=== PATIENT | female | born 1995 | race Caucasian/White ===

== ENCOUNTER 2016-09-24 20:49 | Emergency (ER) | payer OTHER ==
--- NOTE | 2016-09-24 21:53 | ED CLINICAL REPORT ---
Clinical Report - Physicians/Mid Levels [facility] [address] [place] [address] 09/24/2016 20:51 Patient: CORI ESPINAL Time Seen: 2140 PM. Arrived- By private vehicle. Historian- patient. HISTORY OF PRESENT ILLNESS Chief Complaint: DYSURIA. This started today and still present. The symptoms are described as moderate. No vaginal pain, vaginal discharge, vaginal itching or genital lesions. She has had urgency of urination. Last normal menstrual period was 1 week ago. Sexual history - sexually active. No history of exposure to sexually transmitted disease. Similar symptoms previously: Once. Recent medical care: Not recently seen/assessed. REVIEW OF SYSTEMS No nausea, vomiting, fever, chills or anorexia. PAST HISTORY See nurses notes. No history of hypertension or diabetes mellitus. SOCIAL HISTORY Never smoker. History of drug use: marijuana. No alcohol use. ADDITIONAL NOTES The nursing notes have been reviewed. PHYSICAL EXAM Vital Signs: 09/24/2016 21:00 BP: 116/73. HR: 77. RR: 16. O2 saturation: 100%. Temp: 98.5 F. Pain level now: 5/10. Have been reviewed and appear to be correct. Appearance: Alert. Oriented X3. No acute distress. HEENT: Normal external inspection. Neck: Neck supple. Respiratory: No respiratory distress. Abdomen: Soft. Skin: Skin warm and dry. Normal skin color. Normal skin turgor. Neuro: Oriented X 3. Mood/affect normal. LABS, X-RAYS, AND EKG Laboratory Tests: Laboratory tests have been ordered, with results reviewed and considered in the medical decision making process. UA-Culture if indicated: (KATHY: 09/24/2016 20:15) ( MsgRcvd 09/24/2016 21:50) Final results Test Result Flag Units (Reference) URINE COLOR YELLOW URINE APPEARANCE CLOUDY URINE GLUCOSE NEGATIVE (NEGATIVE) URINE BILIRUBIN NEGATIVE (NEGATIVE) URINE KETONE NEGATIVE (NEGATIVE) URINE SPECIFIC GRAVITY 1.020 (1.010-1.030) URINE PH 6.0 (5.0-8.0) URINE PROTEIN TRACE (NEGATIVE) URINE UROBILINOGEN 0.2 EU/dL (0.2-1.0) URINE NITRITE POSITIVE (NEGATIVE) URINE BLOOD 3+ (NEGATIVE) URINE LEUK ESTERASE POSITIVE (NEGATIVE) URINE RBC >100 rbc/hpf (0-1) URINE WBC >100 wbc/hpf (0-1) URINE EPITHELIAL CELLS 0-1 EPI/hpf (0-5) URINE BACTERIA MODERATE (2+ TO 3+) (NONE SEEN) URINE COMMENT CULTURE INDICATED URINE CULTURES ARE SET-UP BASED ON THE FOLLOWING CRITERIA:POSITIVE NITRITEPOSITIVE LEUKOCYTE ESTERASEGREATER THAN 10 WHITE BLOOD CELLSMODERATE (2+) OR GREATER BACTERIA . PROGRESS AND PROCEDURES Course of Care: 22:09 09/24/16. tx plan reviewed Pyridium and Macrobid given. Patient is stable. Patient/family counseled. Disposition: Discharged. Condition: stable. CLINICAL IMPRESSION Acute urinary tract infection with cystitis and hematuria. INSTRUCTIONS Drink plenty of fluids. (We will call if culture shows need for different antibiotic). Warnings: GENERAL WARNINGS: Return or contact your physician immediately if your condition worsens or changes unexpectedly, if not improving as expected, or if other problems arise. Prescription Medications: Pyridium 200 mg: take 1 orally every 8 hours as needed for urinary problems. Dispense ten (10). No refill. Macrobid 100 mg: take 1 capsule orally every 12 hours for 5 days. No refill. Follow-up: Follow up with your doctor in two days if not better. Understanding of the discharge instructions verbalized by patient. (Electronically signed by Addie Boswell A.R.N.P. 09/24/2016 22:10)
--- NOTE | 2016-09-24 21:53 | ED ORDER SUMMARY ---
..... Patient: CORI ESPINAL OrderSheet [facility] VisitID: [id number] [place] [address] 21y, F Registration Date/Time: 09/24/2016 ORDER SHEET Weight: 51.2 kg (measured) Allergies: No Known Drug Allergy GENERAL ORDERS: UA-Culture if indicated Urgent (21:11 09/24/2016 SThom A.R.N.P.) (Ack 21:17 [employer] ER [employer] Letter Carrier) (21:21 DDean R.N.) Urine Urgent (21:11 09/24/2016 SThom A.R.N.P.) (Ack 21:17 [employer] ER [employer] Letter Carrier) (21:21 DDean R.N.) (Cancelled: Other21:21 DDean R.N.) POC - Urine hCG (21:21 09/24/2016 DDean R.N. per protocol) (21:21 DDean R.N.) MEDICATION ORDERS: Macrobid PO 100 mg (NOW) (21:49 09/24/2016 SThom A.R.N.P.) (21:50 DDean R.N.) Phenazopyridine PO 200 mg (NOW) (21:49 09/24/2016 SThom A.R.N.P.) (21:50 DDean R.N.) IV FLUIDS: ORDER SHEET NOTES: [Electronically signed by Addie Boswell.R.N.P. (22:10 09/24/2016)] [Electronically signed by Ora Harper R.N. (22:12 09/24/2016)] [Electronically locked/signed by Ora Harper R.N. (22:12 09/24/2016)]
--- NOTE | 2016-09-24 21:53 | ED NURSING NOTES ---
Clinical Report - Nurses [facility] [address] [place] [address] 09/24/2016 20:51 Patient: CORI ESPINAL TRIAGE Triage time 2100. Acuity: LEVEL 4. Chief Complaint: PAINFUL URINATION, URGENCY and FREQUENCY. --21:23 Ora Harper R.N. 21:00 09/24/16. BP: 116/73. HR: 77. RR: 16. O2 saturation: 100%. Temp: 98.5 F. Pain level now: 11/30. --21:23 Ora Harper R.N. Weight: 51.2 kg measured. Height/Length: 62 inches Measured. BMI: 20.7. --21:11 Ora Harper R.N. Medications None. --21:12 Ora Harper R.N. Advil 400mg at noon. --21:12 Ora Harper R.N. Allergies No Known Drug Allergy. --21:12 Ora Harper R.N. History Arrived by private vehicle. Historian: patient. Accompanied by friend. No primary care physician. This started today. PAST MEDICAL HX: Negative. Last normal menstrual period- 1 week. SURGERY HX: No history of previous surgery. SOCIAL HX: Never smoker. Occasional alcohol use. History of drug use: marijuana. --21:23 Ora Harper R.N. PROBLEMS: no known problems. ADDITIONAL SURGERIES: no known surgeries. Interventions ID band on patient. To treatment room. --21:23 Ora Harper R.N. PHYSICAL ASSESSMENT 21:10. Ambulatory to room. Patient gowned. GENERAL / NEURO / PSYCH: Alert. Oriented X 4. Appears in no acute distress. RESPIRATORY: Respirations not labored. CVS: Capillary refill less than 2 seconds. GI / : Abdomen soft. Pain with urination. She has had frequency of urination. Urgency of urination. No vaginal bleeding. SKIN: Skin is warm and dry. --21:22 Ora Harper R.N. NURSING PROGRESS NOTES 21:10 09/24/16. Patient gowned. Head of bed elevated. Reassurance given. Patient identifiers checked. Call light placed in reach. Side rails up. Bed placed in lowest position. Patient ready for evaluation- chart flagged. --21:10 Ora Harper R.N. 21:11 09/24/16. Patient ID band checked for patient name and birthdate: patient confirmed urine collected with return of yellow-colored cloudy urine; sample sent to lab for urinalysis and culture. Specimen labeled in the presence of the patient. --21:11 Ora Harper R.N. 21:20 09/24/16. ( POC preg done in ED= Neg , ERNP notified). --21:20 Ora Harper R.N. 21:50 09/24/2016 Macrobid PO Capsules 100 mg given. Allergies verified and confirmed 5 rights. --21:50 Ora Harper R.N. 21:50 09/24/2016 Phenazopyridine PO Tablets 200 mg given. Allergies verified and confirmed 5 rights. --21:50 Ora Harper R.N. DISPOSITION / DISCHARGE Condition at departure: stable. No learning barriers present. Discharge instructions provided and reviewed with the patient. Reviewed medication(s) (pyridium, macrobid). Patient verbalized understanding. Written instructions provided in Upper Sorbian. The patient was discharged home and accompanied by repertoire manager. She left the Emergency Department ambulatory and via private vehicle. Healthcare Network Consultant driving. --22:10 Ora Harper R.N. 21:55 09/24/16. BP: 110/80. HR: 72. RR: 16. O2 saturation: 100%. Temp: deferred. Pain level now: 10/31. --22:10 Ora Harper R.N. Locked/Released at 09/24/2016 22:12 by Ora Harper R.N.
--- NOTE | 2016-09-24 21:53 | ED ORDER SUMMARY ---
..... Patient: CORI ESPINAL OrderSheet [facility] VisitID: [id number] [place] [address] 21y, F Registration Date/Time: 09/24/2016 ORDER SHEET Weight: 51.2 kg (measured) Allergies: No Known Drug Allergy GENERAL ORDERS: UA-Culture if indicated Urgent (21:11 09/24/2016 SThom A.R.N.P.) (Ack 21:17 [employer]prietary Trader) (21:21 DDean R.N.) Urine Urgent (21:11 09/24/2016 SThom A.R.N.P.) (Ack 21:17 [employer]etary Tr[employer]) (21:21 DDean R.N.) (Cancelled: Other21:21 DDean R.N.) POC - Urine hCG (21:21 09/24/2016 DDean R.N. per protocol) (21:21 DDean R.N.) MEDICATION ORDERS: Macrobid PO 100 mg (NOW) (21:49 09/24/2016 SThom A.R.N.P.) (21:50 DDean R.N.) Phenazopyridine PO 200 mg (NOW) (21:49 09/24/2016 SThom A.R.N.P.) (21:50 DDean R.N.) IV FLUIDS: ORDER SHEET NOTES: [Electronically signed by Addie Boswell.R.N.P. (22:10 09/24/2016)] [Electronically signed by Ora Harper R.N. (22:12 09/24/2016)] [Electronically locked/signed by Ora Harper R.N. (22:12 09/24/2016)]
--- NOTE | 2016-09-24 21:53 | ED NURSING NOTES ---
Clinical Report - Nurses [facility] [address] [place] [address] 09/24/2016 20:51 Patient: CORI ESPINAL TRIAGE Triage time 2100. Acuity: LEVEL 4. Chief Complaint: PAINFUL URINATION, URGENCY and FREQUENCY. --21:23 Ora Harper R.N. 21:00 09/24/16. BP: 116/73. HR: 77. RR: 16. O2 saturation: 100%. Temp: 98.5 F. Pain level now: 11/30. --21:23 Ora Harper R.N. Weight: 51.2 kg measured. Height/Length: 62 inches Measured. BMI: 20.7. --21:11 Ora Harper R.N. Medications None. --21:12 Ora Harper R.N. Advil 400mg at noon. --21:12 Ora Harper R.N. Allergies No Known Drug Allergy. --21:12 Ora Harper R.N. History Arrived by private vehicle. Historian: patient. Accompanied by friend. No primary care physician. This started today. PAST MEDICAL HX: Negative. Last normal menstrual period- 1 week. SURGERY HX: No history of previous surgery. SOCIAL HX: Never smoker. Occasional alcohol use. History of drug use: marijuana. --21:23 Ora Harper R.N. PROBLEMS: no known problems. ADDITIONAL SURGERIES: no known surgeries. Interventions ID band on patient. To treatment room. --21:23 Ora Harper R.N. PHYSICAL ASSESSMENT 21:10. Ambulatory to room. Patient gowned. GENERAL / NEURO / PSYCH: Alert. Oriented X 4. Appears in no acute distress. RESPIRATORY: Respirations not labored. CVS: Capillary refill less than 2 seconds. GI / : Abdomen soft. Pain with urination. She has had frequency of urination. Urgency of urination. No vaginal bleeding. SKIN: Skin is warm and dry. --21:22 Ora Harper R.N. NURSING PROGRESS NOTES 21:10 09/24/16. Patient gowned. Head of bed elevated. Reassurance given. Patient identifiers checked. Call light placed in reach. Side rails up. Bed placed in lowest position. Patient ready for evaluation- chart flagged. --21:10 Ora Harper R.N. 21:11 09/24/16. Patient ID band checked for patient name and birthdate: patient confirmed urine collected with return of yellow-colored cloudy urine; sample sent to lab for urinalysis and culture. Specimen labeled in the presence of the patient. --21:11 Ora Harper R.N. 21:20 09/24/16. ( POC preg done in ED= Neg , ERNP notified). --21:20 Ora Harper R.N. 21:50 09/24/2016 Macrobid PO Capsules 100 mg given. Allergies verified and confirmed 5 rights. --21:50 Ora Harper R.N. 21:50 09/24/2016 Phenazopyridine PO Tablets 200 mg given. Allergies verified and confirmed 5 rights. --21:50 Ora Harper R.N. DISPOSITION / DISCHARGE Condition at departure: stable. No learning barriers present. Discharge instructions provided and reviewed with the patient. Reviewed medication(s) (pyridium, macrobid). Patient verbalized understanding. Written instructions provided in Indonesian. The patient was discharged home and accompanied by parts sales manager. She left the Emergency Department ambulatory and via private vehicle. Marine Service Operator driving. --22:10 Ora Harper R.N. 21:55 09/24/16. BP: 110/80. HR: 72. RR: 16. O2 saturation: 100%. Temp: deferred. Pain level now: 10/31. --22:10 Ora Harper R.N. Locked/Released at 09/24/2016 22:12 by Ora Harper R.N.
--- NOTE | 2016-09-24 22:12 | ED MED RECONCILIATION SUMMARY ---
Patient: CORI ESPINAL Medication Reconciliation Report [facility] VisitID: [id number] [address] [place] [address] 21y, F Registration Date/Time: 09/24/2016 Weight: 51.2 kg Height/Length: 62 in. BMI: 20.7 ALLERGIES: No Known Drug Allergy The patient's Home Medications are listed below: THE FOLLOWING MEDICATIONS NEED TO BE RECONCILED: Advil 400mg at noon The source(s) of the original Home Medication information: Not obtained. The following Medications were given to the patient in the Emergency Department: Macrobid [PO] PO 100 mg, administered: 09/24/2016 9:50:00 PM Phenazopyridine [PO] PO 200 mg, administered: 09/24/2016 9:50:00 PM The following Medications were prescribed to the patient: Pyridium 200 mg: take 1 orally every 8 hours as needed for urinary problems. Dispense ten (10). No refill. -- Addie Boswell A.R.N.P. Macrobid 100 mg: take 1 capsule orally every 12 hours for 5 days. No refill. -- Addie Boswell A.R.N.P.
--- NOTE | 2016-09-24 22:12 | ED MAR SUMMARY ---
..... Medication Administration Record [facility] [address] [place] [address] Patient: CORI ESPINAL Visit ID: [id number] 21y, F Weight: 51.2 kg Height/Length: 62 in BMI: 20.7 ALLERGIES: No Known Drug Allergy Given :09/24/2016 Ora Harper, R.N. Medication Administered: MACROBID [PO], Dose: 100 mg Capsules PO. Medication Ordered: Macrobid PO 100 mg (NOW). Given 21:09/24/2016 Ora Harper, R.N. Medication Administered: PHENAZOPYRIDINE [PO], Dose: 200 mg Tablets PO. Medication Ordered: Phenazopyridine PO 200 mg (NOW).
--- NOTE | 2016-09-24 22:12 | ED MAR SUMMARY ---
..... Medication Administration Record [facility] [address] [place] [address] Patient: CORI ESPINAL Visit ID: [id number] 21y, F Weight: 51.2 kg Height/Length: 62 in BMI: 20.7 ALLERGIES: No Known Drug Allergy Given :09/24/2016 Ora Harper, R.N. Medication Administered: MACROBID [PO], Dose: 100 mg Capsules PO. Medication Ordered: Macrobid PO 100 mg (NOW). Given 21:09/24/2016 Ora Harper, R.N. Medication Administered: PHENAZOPYRIDINE [PO], Dose: 200 mg Tablets PO. Medication Ordered: Phenazopyridine PO 200 mg (NOW).
--- NOTE | 2016-09-24 22:12 | ED DISCHARGE INSTRUCTIONS ---
Patient: CORI ESPINAL General Instructions [facility] VisitID: [id number] [place] [address] 21y, F Registration Date/Time: 09/24/2016 Acute urinary tract infection with cystitis and hematuria. INSTRUCTIONS Drink plenty of fluids. (We will call if culture shows need for different antibiotic). Warnings: GENERAL WARNINGS: Return or contact your physician immediately if your condition worsens or changes unexpectedly, if not improving as expected, or if other problems arise. Prescription Medications: Pyridium 200 mg: take 1 orally every 8 hours as needed for urinary problems. Dispense ten (10). No refill. Macrobid 100 mg: take 1 capsule orally every 12 hours for 5 days. No refill. Follow-up: Follow up with your doctor in two days if not better. Understanding of the discharge instructions verbalized by patient. ADDITIONAL INFORMATION Bladder Infection,Female (Adult) A bladder infection ("cystitis" or "UTI") usually causes a constant urge to urinate and a burning when passing urine. Urine may be cloudy, smelly or dark. There may be pain in the lower abdomen. A bladder infection occurs when bacteria from the vaginal area enter the bladder opening (urethra). This can occur from sexual intercourse, wearing tight clothing, dehydration and other factors. Home Care: Drink lots of fluids (at least 6-8 glasses a day, unless you must restrict fluids for other medical reasons). This will force the medicine into your urinary system and flush the bacteria out of your body. Avoid sexual intercourse until your symptoms are gone. Avoid caffeine, alcohol and spicy foods. These can irritate the bladder. A bladder infection is treated with antibiotics. You may also be given Pyridium (generic = phenazopyridine) to reduce the burning sensation. This medicine will cause your urine to become a bright orange color. The orange urine may stain clothing. You may wear a pad or panty-liner to protect clothing. Preventing Future Infections: Always wipe from front to back after a bowel movement. Keep the genital area clean and dry. Drink plenty of fluids each day to avoid dehydration. Both sexual partners should wash before intercourse. Urinate right after intercourse to flush out the bladder. Wear cotton underwear and cotton-lined panty hose; avoid tight-fitting pants. If you are on control pills and are having frequent bladder infections, discuss with your doctor. Follow Up: Return to this facility or see your doctor if ALL symptoms are not gone after three days of treatment. Get Prompt Medical Attention if any of the following occur: Fever of 100.4F (38C) or higher, or as directed by your healthcare provider No improvement by the third day of treatment Increasing back or abdominal pain Repeated vomiting; unable to keep medicine down Weakness, dizziness or fainting Vaginal discharge Pain, redness or swelling in the labia (outer vaginal area) You have been given the following additional information: Bladder Infection, Female (Adult) (Electronically signed by Addie Boswell A.R.N.P. 09/24/2016 22:10)
--- NOTE | 2016-09-24 22:12 | ED MED RECONCILIATION SUMMARY ---
Patient: CORI ESPINAL Medication Reconciliation Report [facility] VisitID: [id number] [address] [place] [address] 21y, F Registration Date/Time: 09/24/2016 Weight: 51.2 kg Height/Length: 62 in. BMI: 20.7 ALLERGIES: No Known Drug Allergy The patient's Home Medications are listed below: THE FOLLOWING MEDICATIONS NEED TO BE RECONCILED: Advil 400mg at noon The source(s) of the original Home Medication information: Not obtained. The following Medications were given to the patient in the Emergency Department: Macrobid [PO] PO 100 mg, administered: 09/24/2016 9:50:00 PM Phenazopyridine [PO] PO 200 mg, administered: 09/24/2016 9:50:00 PM The following Medications were prescribed to the patient: Pyridium 200 mg: take 1 orally every 8 hours as needed for urinary problems. Dispense ten (10). No refill. -- Addie Boswell A.R.N.P. Macrobid 100 mg: take 1 capsule orally every 12 hours for 5 days. No refill. -- Addie Boswell A.R.N.P.
== END 2016-09-24 21:55 | disposition home or self-care (01) ==
LOC: ED SRH 20:49
DX: N30.01 Acute cystitis with hematuria (principal)
CPT/HCPCS: 90004; 90148; 90469; 93070